=== PATIENT | female | born 1950 | race Caucasian/White ===

== ENCOUNTER → 2019-10-02 | Outpatient (CLI) | payer MEDICARE, OTHER ==
[2019-10-02 12:08] LABS: EOS # 0.2 (0.04-0.40); EOS % 2.3 % (1.0-5.0); HEMOGLOBIN 14.3 g/dL (12.5-16.0); LYMPH# 3.1 (1.50-4.00); MEAN CELL VOLUME 89 fl (78-100); MEAN CORPUSCULAR HEMOGLOBIN 29 pg (27-31); MEAN CORPUSCULAR HGB CONC 33 g/dL (33-37); MEAN PLATELET VOLUME 10.5 fl (7.4-10.4); MONO # 0.5 (0.20-0.80); NEU # 3.2 (1.40-6.50); PLATELET COUNT 266 K/mm3 (130-400); RED BLOOD COUNT 4.95 M/mm3 (4.10-5.30); RED CELL DISTRIBUTION WIDTH 13.3 % (11.5-14.5); WHITE BLOOD COUNT 6.9 K/mm3 (4.8-10.8)
[2019-10-02 14:45] LABS: ALBUMIN 4.2 g/dL (3.4-4.8)
[2019-10-02 14:46] LABS: CALCIUM 9.6 mg/dL (8.3-10.5)
[2019-10-02 14:48] LABS: TOTAL PROTEIN 7.7 g/dL (6.2-8.1)
[2019-10-02 14:50] LABS: TOTAL BILIRUBIN 0.3 mg/dL (0.2-1.2)
[2019-10-02 14:52] LABS: PHENYTOIN (DILANTIN) 12.7 ug/mL (10.0-20.0)
== END ==
LOC: LAB 11:42
PROVIDERS: Family Medicine
DX: Z00.00 Encounter for general adult medical examination without abnormal findings (principal); E78.5 Hyperlipidemia, unspecified; R78.89 Finding of other specified substances, not normally found in blood

== ENCOUNTER → 2021-03-12 | Outpatient (CLI) | payer MEDICARE, OTHER | LOC: RAD 14:21 | DX: R05 Cough (principal) ==

== ENCOUNTER 2021-11-17 10:13 | Emergency (ER) | payer MEDICARE, OTHER ==
[~2021-11-17] VITALS: Ht 172.7 cm; Wt 81.8 kg
[2021-11-17] MEDS ORDERED: DILANTIN30 MG PO (10:23)
[2021-11-17] MEDS ORDERED: DILANTIN 100MG100 MG PO (10:23)
[2021-11-17] MEDS ORDERED: ASPIRIN E.C. 8181 MG (10:24)
[2021-11-17] MEDS ORDERED: CENTRUM SILVER1 EAC1 PO (10:24)
[2021-11-17] MEDS ORDERED: B12 ACTIVE1000 MCG PO (10:24)
[2021-11-17 11:28] LABS: EOS # 0.04 K/mm3 (0.04-0.40); EOS % 1.2 % (1.0-5.0); HEMATOCRIT 42.7 % (37.0-47.0); HEMOGLOBIN 13.9 g/dL (12.5-16.0); LYMPH# 1.75 K/mm3 (1.50-4.00); MEAN CELL VOLUME 90 fl (78-100); MEAN CORPUSCULAR HEMOGLOBIN 29 pg (27-31); MEAN CORPUSCULAR HGB CONC 33 g/dL (33-37); MEAN PLATELET VOLUME 10.3 fl (7.4-10.4); MONO # 0.38 K/mm3 (0.20-0.80); NEU # 1.24 K/mm3 (1.40-6.50); PLATELET COUNT 211 K/mm3 (130-400); RED BLOOD COUNT 4.77 M/mm3 (4.10-5.30); RED CELL DISTRIBUTION WIDTH 12.9 % (11.5-14.5); WHITE BLOOD COUNT 3.4 K/mm3 (4.8-10.8)
[2021-11-17 11:32] LABS: ALBUMIN 3.7 g/dL (3.4-4.8); POTASSIUM 4.9 mmol/L (3.5-5.1)
[2021-11-17 11:33] LABS: CALCIUM 8.8 mg/dL (8.3-10.5)
[2021-11-17 11:35] LABS: TOTAL PROTEIN 7.2 g/dL (6.2-8.1)
[2021-11-17 11:36] LABS: TOTAL BILIRUBIN 0.2 mg/dL (0.2-1.2)
[2021-11-17 11:57] VITALS: BP 145/90
== END 2021-11-17 12:00 | disposition home or self-care (01) ==
LOC: ED 10:13
PROVIDERS: Nurse Practitioner
DX: M79.605 Pain in left leg (principal); E66.3 Overweight; Z68.27 Body mass index [BMI] 27.0-27.9, adult

== ENCOUNTER → 2021-11-24 | Outpatient (CLI) | payer MEDICARE, OTHER ==
[~2021-11-24] MED LIST: ASPIRIN E.C. 8181 MG; B12 ACTIVE1000 MCG PO; CENTRUM SILVER1 EAC1 PO; DILANTIN 100MG100 MG PO; DILANTIN30 MG PO
== END ==
LOC: LAB 09:43
DX: Z00.00 Encounter for general adult medical examination without abnormal findings (principal); N80.9 Endometriosis, unspecified; K64.4 Residual hemorrhoidal skin tags; G40.909 Epilepsy, unspecified, not intractable, without status epilepticus; E66.3 Overweight; E55.9 Vitamin D deficiency, unspecified; E78.5 Hyperlipidemia, unspecified; M79.605 Pain in left leg

== ENCOUNTER → 2022-11-06 | Outpatient (CLI) | payer MEDICARE, OTHER | LOC: RAD 11:21 | DX: M25.861 Other specified joint disorders, right knee (principal) ==

== ENCOUNTER → 2022-11-24 | Outpatient (CLI) | payer MEDICARE, OTHER | LOC: RAD 09:50 | DX: M25.561 Pain in right knee (principal) ==

== ENCOUNTER → 2023-08-18 | Outpatient (CLI) | payer MEDICARE, OTHER | LOC: RAD 13:01 | DX: R22.42 Localized swelling, mass and lump, left lower limb (principal) ==

== ENCOUNTER → 2024-05-02 | Outpatient (CLI) | payer MEDICARE, OTHER ==
[~2024-05-02] MED LIST changes: +ATARAX 10MG10 MG/TAB PO; +PREDNISONE20 M1 PO
== END ==
LOC: RAD 16:33
DX: M79.672 Pain in left foot (principal)